=== PATIENT | male | born 1995 | race African-American/Black ===

== ENCOUNTER 2017-05-26 03:53 | Emergency (ER) | payer BC, MEDICAID ==
[~2017-05-26] VITALS: Ht 182.9 cm; Wt 75.0 kg
[2017-05-26 07:56] LABS: BASOPHILS % 1.1 % (0.0-2.0); EOSINOPHILS % 5.1 % (0.0-5.0); HEMATOCRIT. 41.4 % (42.0-52.0); HEMOGLOBIN. 14.4 g/dL (14.0-18.0); LYMPHOCYTES % 45.3 % (20.0-50.0); MEAN CORPUSCULAR HEMOGLOBIN 30.4 pg (28.0-32.0); MEAN CORPUSCULAR VOLUME 87.8 fL (80.0-94.0); MEAN PLATELET VOLUME 9.5 fl (7.4-10.4); MONOCYTES % 7.3 % (2.0-8.0); NEUTROPHILS % 41.2 % (40.0-76.0); PLATELET 141 x1000/uL (130-400); RED BLOOD CELL COUNT 4.72 mill/uL (4.7-6.1)
[2017-05-26 08:03] LABS: CARBON DIOXIDE 31 mEq/L (21-32); CHLORIDE 104 mEq/L (98-107)
[2017-05-26 08:11] LABS: TROPONIN I < 0.02 ng/mL (0.00-0.04)
[2017-05-26 09:35] VITALS: BP 131/89
== END 2017-05-26 10:34 | disposition home or self-care (01) ==
LOC: ER 07:35
DX: F41.1 Generalized anxiety disorder (principal); J45.909 Unspecified asthma, uncomplicated; F17.210 Nicotine dependence, cigarettes, uncomplicated; F12.10 Cannabis abuse, uncomplicated
CPT/HCPCS: 36415; 71010; 80053; 83880; 84484; 85025; 93005; 99285

== ENCOUNTER 2018-03-06 19:47 | Emergency (ER) | payer BC, MEDICAID ==
[~2018-03-06] VITALS: Ht 182.9 cm; Wt 73.0 kg
[2018-03-06 20:01] VITALS: BP 161/99
== END 2018-03-07 02:00 | disposition left against medical advice (07) ==
LOC: ER 21:28
DX: R07.89 Other chest pain (principal); R42 Dizziness and giddiness; Z53.21 Procedure and treatment not carried out due to patient leaving prior to being seen by health care provider
CPT/HCPCS: 93005